=== PATIENT | female | born 1985 ===

== ENCOUNTER 2017-02-11 04:22 | Emergency (ER) | payer BC ==
[2017-02-11 05:20] VITALS: O2SAT 100
--- NOTE | 2017-02-11 05:38 | C.PDOC ---
History Of Present Illness <Jamie Osorio - Last Filed: 02/11/17 05:54> <Loyda Montero - Last Filed: 02/11/17 08:30> 31 year old female 4 weeks , , presents to the ER with a complaint of abdominal pain for the past 2 weeks. Patient has not had a US yet; denies vaginal bleeding or other complaints. (Jamie Osorio) History Per: Patient History/Exam Limitations: no limitations Onset/Duration Of Symptoms: Days Current Symptoms Are (Timing): Still Present Radiation Of Pain To:: None Quality Of Discomfort: Unable To Describe Associated Symptoms: denies: Fever, Chills Exacerbating Factors: None Alleviating Factors: None Recent travel outside of the [place]: No <Jamie Osorio - Last Filed: 02/11/17 05:54> <Loyda Montero - Last Filed: 02/11/17 08:30> Time Seen by Provider: 02/11/17 05:35 Chief Complaint (Nursing): Abdominal Pain Past Medical History Reviewed: Historical Data, Nursing Documentation, Vital Signs - Medical History PMH: No Chronic Diseases Surgical History: No Surg Hx Family History: States: Unknown Family Hx - Social History Hx Alcohol Use: No Hx Substance Use: No - Immunization History Hx Tetanus Toxoid Vaccination: No Hx Influenza Vaccination: No Hx Pneumococcal Vaccination: No <Jamie Osorio - Last Filed: 02/11/17 05:54> Vital Signs: Last Vital Signs Temp 97.8 F 02/11/17 05:15 Pulse 71 02/11/17 05:15 Resp 18 02/11/17 05:15 BP 114/84 02/11/17 05:15 Pulse Ox 100 02/11/17 05:59 Review Of Systems Constitutional: Negative for: Fever, Chills Gastrointestinal: Positive for: Abdominal Pain. Negative for: Nausea, Vomiting Genitourinary: Negative for: Vaginal Bleeding <Jamie Osorio - Last Filed: 02/11/17 05:54> Physical Exam - Physical Exam Appears: Non-toxic, No Acute Distress Skin: Normal Color, Warm, Dry Head: Atraumatic, Normacephalic Oral Mucosa: Moist Chest: Symmetrical, No Tenderness Cardiovascular: Rhythm Regular Respiratory: Normal Breath Sounds, No Rales, No Rhonchi, Wheezing Gastrointestinal/Abdominal: Soft, Tenderness (Mild suprapubic), No Guarding, No Rebound Neurological/Psych: Oriented x3, Normal Speech, Other (No focal deficits) <Jamie Osorio - Last Filed: 02/11/17 05:54> ED Course And Treatment O2 Sat by Pulse Oximetry: 100 (room air) Pulse Ox Interpretation: Normal <Jamie Osorio - Last Filed: 02/11/17 05:54> - Laboratory Results Result Diagrams: 02/11/17 06:48 02/11/17 06:48 - CT Scan/US TRANSVAGINAL US Other Rad Studies (CT/US): Read By Radiologist, Radiology Report Reviewed CT/US Interpretation: Accession No. : [id number]. Patient Name / ID : MEGHA HUTCHISON / [id number]. Exam Date : 02/11/2017 06:51:09 ( Approved ). Study Comment : Sex / Age : F / 31Y. Creator : ANN. 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 PALMER Approver2 : Report Date : 02/11/2017 07: 48:00. My Comment : . [facility] Division of Radiology. [address] [place] [address]. Tel. no. . . . Patient Name: FOSTER CLEVELAND . Pt. Address: [address] [place] [address]. Rec #: [id number]. [place] [address]: Jamie Osorio DO. Pt Order Location: [facility] : 1985 Female Age: 31 Order #: [id number]. Reason for exam: abd pain and . . . . . . Ultrasound. . . OB TRANSVAGINAL Exam Date: 02/11/17. . This imaging exam was performed at [facility] EXAM: US , Transvaginal. . EXAM DATE/TIME: 02/11/2017 5:39 AM. . CLINICAL HISTORY: 31 years old, female ; Pain; complicated by abdominal or pelvic. pain; Lower; First trimester; Gestational age or lmp: 01/08/17; ;. Additional info: Abd pain and . . TECHNIQUE: Real-time transvaginal obstetrical ultrasound of the maternal pelvis and a. first trimester with image documentation. Transvaginal imaging was. used for better evaluation of the fetus and adnexa. . COMPARISON: No relevant prior studies available. . FINDINGS: There is an intrauterine gestational sac. No pole is identified. A. yolk sac is noted. Gestational sac measures 0.58 cm, out of range for. gestational age estimation. . Uterus measures 8.5 x 4.2 x 5.7 cm. There are 2 small subserosal fibroids in. uterine fundus measuring 8 x 7 x 9 mm and 9 x 7 x 8mm. The right measures 3.1 x. 1.6 x 2 cm. Left ovary measures 3.5 x 2.2 x 2.8 cm. There is a corpus luteum. cyst in the left ovary measuring 1.8 1.5 x 1.9 cm. There is normal color. Doppler flow to both ovaries. There is small amount of fluid in the cul-de-sac. . IMPRESSION: 1. Intrauterine gestational sac with yolk sac but no demonstrable pole,. may reflect early stage of gestation. Recommend follow up. 2. Small subcentimeter serosal fibroids. . Dictated By: Bailey Reid. Dictated Date/Time: 02/11/17747. Signed By: MD Bailey Reid. Date Signed: 02/11/17747. Transcribed By: [facility]. Transcribe Date/Time: 02/11/17747. AATP02/MT <Loyda Montero - Last Filed: 02/11/17 08:30> Medical Decision Making <Jamie Osorio - Last Filed: 02/11/17 05:54> <Loyda Montero - Last Filed: 02/11/17 08:30> Medical Decision Making: Blood work, urinalysis, and transvaginal US ordered. (Jamie Osorio) Disposition <Jamie Osorio - Last Filed: 02/11/17 05:54> Counseled Patient/Family Regarding: Studies Performed, Diagnosis, Need For Followup - Disposition Disposition Time: 08:35 <Loyda Montero - Last Filed: 02/11/17 08:30> - Disposition Referrals: [facility] [Outside] Disposition: HOME/ ROUTINE Condition: STABLE Additional Instructions: FOLLOW UP WITH YOUR FILENET P8 DEVELOPER WITHIN 1 WEEK RETURN TO ER IF YOU HAVE ANY CONCERNING SYMPTOMS USE TYLENOL NEEDED Instructions: (ED), Uterine Fibroids (ED) Forms: [employer] (Kiswahili) Print Language: URDU - Clinical Impression Clinical Impression: Intrauterine , Fibroids, Pelvic cramping - Scribe Statement The provider has reviewed the documentation as recorded by the Scribe <Jamie Osorio - Last Filed: 02/11/17 05:54> <Loyda Montero - Last Filed: 02/11/17 08:30> - Scribe Statement Kamran Russo All medical record entries made by the Scribe were at my direction and personally dictated by me. I have reviewed the chart and agree that the record accurately reflects my personal performance of the history, physical exam, medical decision making, and the department course for this patient. I have also personally directed, reviewed, and agree with the discharge instructions and disposition. (Jamie Osorio) Addendum <Jamie Osorio - Last Filed: 02/11/17 05:54> <Loyda Montero - Last Filed: 02/11/17 08:30> Addendum: 02/11/17 08:23 Patient currently resting comfortably, in no pain/distress. US shows gestational sac, likely early IUP. Blood work, UA unremarkable. Patient instructed to follow up with mirror department supervisor within 1 week, and she understands she should return to ED if symptoms worsen. (Loyda Montero)
[2017-02-11 06:52] LABS: BASO # 0.1 K/uL (0.0-0.2); BASO % 0.6 % (0.0-2.0); EOS % 0.4 % (0.0-4.0); HEMATOCRIT 34.1 % (34.0-47.0); LYMPH # 1.8 K/uL (1.0-4.3); LYMPH % 19.2 % (20.0-40.0); MEAN CELL VOLUME 83.5 fL (81.0-99.0); MEAN CORPUSCULAR HEMOGLOBIN 28.3 pg (27.0-31.0); MEAN CORPUSCULAR HGB CONC 33.9 g/dL (33.0-37.0); MEAN PLATELET VOLUME 8.5 fL (7.2-11.7); MONO # 0.4 K/uL (0.0-0.8); MONO % 3.8 % (0.0-10.0); RED CELL DISTRIBUTION WIDTH 14.1 % (11.5-14.5); WHITE BLOOD COUNT 9.4 K/uL (4.8-10.8)
[2017-02-11 06:55] LABS: RBC URINE 1 /hpf (0-3); URINE BACTERIA RARE (<OCC); URINE BILIRUBIN NEGATIVE (NEGATIVE); URINE BLOOD NEGATIVE (NEGATIVE); URINE COLOR Yellow (YELLOW); URINE GLUCOSE (UA) NORMAL (Normal); URINE KETONE NEGATIVE (NEGATIVE); URINE LEUKOCYTE ESTERASE NEG Leu/uL (Negative); URINE PROTEIN NEGATIVE (NEGATIVE); URINE UROBILINOGEN NORMAL mg/dL (0.2-1.0); WBC URINE 1 /hpf (0-5)
[2017-02-11 07:07] LABS: ALB/GLOB RATIO 1.1 (1.0-2.1); ALKALINE PHOSPHATASE 57 U/L (38-126); ALT/SGPT 37 U/L (9-52); AST/SGOT 20 U/L (14-36); BILIRUBIN,TOTAL 0.2 mg/dL (0.2-1.3); BLOOD UREA NITROGEN 13 mg/dL (7-17); CALCIUM 8.9 mg/dl (8.6-10.4); CARBON DIOXIDE 28 mmol/L (22-30); CHLORIDE 100 mmol/L (98-107); GFR AFRICAN-AMERICAN > 60; GLUCOSE,RANDOM 95 mg/dL (65-105); POTASSIUM 4.6 mmol/L (3.6-5.2); SODIUM 135 mmol/L (132-148); TOTAL PROTEIN 7.4 g/dL (6.3-8.3)
[2017-02-11 07:17] LABS: INR 1.1
--- NOTE | 2017-02-11 07:48 | US ---
EXAM: US , Transvaginal EXAM DATE/TIME: 02/11/2017 5:39 AM CLINICAL HISTORY: 31 years old, female; Pain; complicated by abdominal or pelvic pain; Lower; First trimester; Gestational age or lmp: 01/08/17; ; Additional info: Abd pain and TECHNIQUE: Real-time transvaginal obstetrical ultrasound of the maternal pelvis and a first trimester with image documentation. Transvaginal imaging was used for better evaluation of the fetus and adnexa. COMPARISON: No relevant prior studies available. FINDINGS: There is an intrauterine gestational sac. No pole is identified. A yolk sac is noted. Gestational sac measures 0.58 cm, out of range for gestational age estimation. Uterus measures 8.5 x 4.2 x 5.7 cm. There are 2 small subserosal fibroids in uterine fundus measuring 8 x 7 x 9 mm and 9 x 7 x 8mm. The right measures 3.1 x 1.6 x 2 cm. Left ovary measures 3.5 x 2.2 x 2.8 cm. There is a corpus luteum cyst in the left ovary measuring 1.8 1.5 x 1.9 cm. There is normal color Doppler flow to both ovaries. There is small amount of fluid in the cul-de-sac. IMPRESSION: 1. Intrauterine gestational sac with yolk sac but no demonstrable pole, may reflect early stage of gestation. Recommend follow up. 2. Small subcentimeter serosal fibroids.
[2017-02-11 08:33] VITALS: BP 118/82; PULSE 68; RESP 16; TEMP 98.3
== END 2017-02-11 09:02 | disposition home or self-care (01) ==
LOC: C.ER 04:22
DX: O34.11 Maternal care for benign tumor of corpus uteri, first trimester (principal); D25.9 Leiomyoma of uterus, unspecified; R10.2 Pelvic and perineal pain; Z3A.01 Less than 8 weeks gestation of pregnancy